=== PATIENT | male | born 1935 | race Caucasian/White ===

== ENCOUNTER 2018-05-31 18:05 | Inpatient (IN) | payer MEDICARE ==
--- NOTE | 2018-05-31 18:16 | ED Physician Chart ---
ED Chief Complaint/HPI - Patient Information Date Seen:: 05/31/18 Time Seen:: 18:00 Chief Complaint:: Depression History of Present Illness:: onset x 2 days of depression and sadness; no report of trauma, H/As, S/T, neck pain, C/P, SOB, Abd. Pain, A/N/V/D/C, fever, chills, SIs, or urinary s/s Historian:: Patient, EMS Review:: Nurse's Note Reviewed, Old Chart Reviewed, EMS run form Reviewed ED Review of Systems - Review of Systems General/Constitutional: No fever, No chills, No weight loss, No weakness, No diaphoresis, No edema, No loss of appetite Skin: No skin lesions, No rash, No bruising Head: No headache, No light-headedness Eyes: No loss of vision, No pain, No diplopia ENT: No earache, No nasal drainage, No sore throat, No tinnitus Neck: No neck pain, No swelling, No thyromegaly, No stiffness, No mass noted Cardio Vascular: No chest pain, No palpitations, No PND, No orthopnea, No edema Pulmonary: No SOB, No cough, No sputum, No wheezing GI: No nausea, No vomiting, No diarrhea, No pain, No melena, No hematochezia, No constipation, No hematemesis G/U: No dysuria, No frequency, No hematuria, No nacturia Musculoskeletal: No bone or joint pain, No back pain, No muscle pain Endocrine: No polyuria, No polydipsia Psychiatric: Prior psych history, Depression, Anxiety, No suicidal ideation, No homicidal ideation, No auditory hallucination, No visual hallucination Hematopoietic: No bruising, No lymphadenopathy Allergic/Immuno: No urticaria, No angioedema Neurological: No syncope, No focal symptoms, No weakness, No paresthesia, No headache, No seizure, No dizziness, No confusion, No vertigo ED Past Medical History - Past Medical History Obtainable: Yes Past Medical History: HTN, DM, Asthma/COPD, Dyslipidemia Family History: Diabetes Melitus, HTN Social History: Non Smoker, No Alcohol, No Drug Use, Care Facility Surgical History: None Psychiatricy History: Depression Medication: Reviewed Family Medical History - Family Member Mother History Unknown: Yes ED Physical Exam - Physical Examination General/Constitutional: Awake, Well-developed, well-nourished, Alert, No distress, GCS 15, Non-toxic appearing, Ambulatory Head: Atraumatic Eyes: Lids, conjuctiva normal, PERRL, EOMI Skin: Nl inspection, No rash, No skin lesions, No ecchymosis, Well hydrated, No lymphadenopathy ENMT: External ears, nose nl, TM canals nl, Nasal exam nl, Lips, teeth, gums nl , Oropharynx nl, Tonsils nl Neck: Nontender, Full ROM w/o pain, No JVD, No nuchal rigidity, No bruit, No mass, No stridor Respiratory: Nl effort/Exclusion, Clear to Auscultation, No Wheeze/Rhonchi/Rales Cardio Vascular: RRR, No murmur, gallop, rubs, NL S1 S2, Carotid/Femoral/Distal pulses equal bilaterally GI: No tenderness/rebounding/guarding, No organomegaly, No hernia, Normal BS's, Nondistended, No mass/bruits, No McBurney tenderness, Rectum exam nl Other GI comments:: no pulsatile masses : No CVA tenderness Extremities: No tenderness or effusion, Full ROM, normal strength in all extremities, No edema, Normal digits & nails Neuro/Psych: Alert/oriented, DTR's symmetric, Normal sensory exam, Normal motor strength, Judgement/insight normal, Mood normal, Normal gait, No focal deficits Other Neuro/Psych comments:: + Psychomotor Retardation; no SIs; Mood/Affect: Labile Misc: Normal back, No paraspinal tenderness ED Labs/Radiology/EKG Results - Lab Results Comments:: Reviewed - EKG Interpretations EKG Time:: 19:34 Rate & Rhythm: 74; NSR Comments:: non-specific st-t changes ED Septic Shock - . Is Septic Shock (SBP<90, OR Lactate>4 mmol\L) present?: No ED Reassessment (Disposition) - Reassessment Reassessment Condition:: Improved - Diagnosis Diagnosis:: Depression; Medical Clearance; DM; HTN; Hyperlipidemia; Psychosis; Bipolar Disorder - Aftercare/Follow up Instructions Aftercare/Follow-Up Instructions:: Counseled pt regarding lab results/diagnosis & need follow up, Counseled pt & family regarding lab results/diagnosis & need follow up - Patient Disposition Discharge/Transfer:: Acute Care w/in this hosp Admitted to:: [facility] Condition at Disposition:: Stable, Improved
[2018-05-31 18:30] LABS: % BASOPHILS 0.2 % (0.0-2.0); % EOSINOPHILS 2.7 % (0.0-5.0); % LYMPHOCYTES 22.6 % (20.0-50.0); % MONOCYTES 5.6 % (2.0-10.0); % NEUTROPHILS 68.9 % (40.0-80.0); EOSINOPHILE ABSOLUTE 0.3 Th/cmm (0.1-0.4); HEMOGLOBIN 13.5 gm/dL (12-16); LYMPHOCYTE ABSOLUTE 2.7 Th/cmm (1.5-3.0); MEAN CELL VOLUME 88.6 fl (80-99); MEAN CORPUSCULAR HGB CONC 33.8 pg (28.0-36.0); MEAN PLATELET VOLUME 7.8 fl; MONOCYTE ABSOLUTE 0.7 Th/cmm (0.3-1.0); NEUTROPHILE ABSOLUTE 8.1 Th/cmm (1.8-8.0); PLATELET COUNT 287 Th/cmm (150-400); RED BLOOD COUNT 4.52 Mil/cmm (3.80-5.80); RED CELL DISTRIBUTION WIDTH 12.7 % (11.5-20.0); WHITE BLOOD COUNT 11.8 Th/cmm (4.8-10.8)
[2018-05-31 18:47] LABS: ACETAMINOPHEN < 10.0 ug/mL (10.0-30.0); ALB/GLOB RATIO 1.3 (1.0-1.8); ALBUMIN 4.1 gm/dL (4.2-5.5); ALKALINE PHOSPHATASE 95 U/L (34-104); BILIRUBIN,TOTAL 0.7 mg/dL (0.3-1.0); BUN - UREA NITROGEN 24 mg/dL (7-25); CALCIUM SERUM 9.4 mg/dL (8.6-10.3); CHLORIDE 102 mEq/L (98-107); CHOLESTEROL 101 mg/dL (<200); CREATININE - SERUM 1.1 mg/dL (0.7-1.3); GLUCOSE 125 mg/dL (70-105); HDL -HIGH DENSITY LIPOPROTEIN 33 mg/dL (23-92); SGOT 25 U/L (13-39); SGPT/ALT 24 U/L (7-52); SODIUM SERUM 136 mEq/L (136-145); TOTAL PROTEIN,SERUM 7.2 gm/dL (6.0-8.3); TRIGLYCERIDES 149 mg/dL (<150)
[2018-05-31 19:33] LABS: SALICYLATES (ASPIRIN) < 25.0 mg/L (30.0-100.0)
[2018-05-31 20:27] VITALS: BP 115/66
[2018-05-31] MEDS ORDERED: Magnesium Hydroxide (MOM) 30 mL UDC PO PRN (20:27)
[2018-05-31] MEDS ORDERED: Albuterol Nebulizer 2.5mg/3mL HHN PRN (20:33)
[2018-05-31] MEDS ORDERED: Ipratropium Neb 0.5 mg/2.5 mL UD HHN PRN (20:33)
[2018-05-31 22:14] LABS: CHOLESTEROL 100 mg/dL (<200); HDL -HIGH DENSITY LIPOPROTEIN 34 mg/dL (23-92); TRIGLYCERIDES 151 mg/dL (<150)
[2018-06-01] MEDS: INSULIN LISPRO 100 UNIT/ML VIAL SUBQ SCH (06:37)
[2018-06-01] MEDS ORDERED: Non-Formulary Item 1 EA (Sertraline Hcl [Zoloft] 100 MG) PO SCH (09:00)
[2018-06-01] MEDS ORDERED: [UNRECOGNIZED DRUG - OTHER] PO SCH (09:00)
[2018-06-01] MEDS ORDERED: Non-Formulary Item 1 EA (Buspirone Hcl [Buspirone Hcl] 10 MG) PO SCH (09:00)
[2018-06-01] MEDS: Aspirin 81mg Chewable Tab PO SCH (09:46)
[2018-06-01] MEDS: Multivitamin w/ Minerals Tab PO SCH (09:47)
--- NOTE | 2018-06-01 15:47 | History & Physical ---
ADMIT DATE: 05/31/2018 CHIEF COMPLAINT: Agitated behavior. HISTORY OF PRESENT ILLNESS: This is an 82-year-old male with history of stroke with generalized weakness, COPD, gait instability, diabetes, admitted from nursing facility secondary to above condition. The patient in a wheelchair. Denies chest pain, shortness of breath. PAST MEDICAL HISTORY: As mentioned in the history of present illness. PAST SURGICAL HISTORY: Gallbladder surgery. ALLERGIES: LISINOPRIL AND LOVASTATIN. MEDICATIONS: The patient is on Tylenol, amlodipine, aspirin, atorvastatin, BuSpar, Plavix, insulin, albuterol, losartan, metformin, multivitamin, and Zoloft. FAMILY HISTORY: Noncontributory. SOCIAL HISTORY: The patient is a correction patient, requiring 24-hour care. The patient is an avid smoker and drinker, abuse marijuana. 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 REVIEW OF SYSTEMS: GENERAL: The patient denies any question of symptoms. HEENT: The patient with some blurred vision. LUNGS: The patient does have COPD. Denies asthma. The patient is a chronic smoker. HEART: The patient with hypertension and diabetes. ABDOMEN: No nausea, vomiting, pain. GENITOURINARY: The patient denies increase of frequency or dysuria. NEUROLOGIC: History of stroke in the past. PHYSICAL EXAMINATION: VITAL SIGNS: Blood pressure 105/57, respirations 18, pulse 81, temperature 97.6. GENERAL: Elderly male in a wheelchair. NECK: Supple. No mass. LUNGS: Equal breath sounds, otherwise clear to auscultation. HEART: Regular rate and rhythm with systolic ejection murmur. ABDOMEN: Soft, globular. EXTREMITIES: Positive excoriations. Decreased motor and sensory in bilateral lower extremity, in a wheelchair. LABORATORY DATA: WBC 11, hemoglobin 13, platelets 287. Sodium 137, potassium 4.0, BUN 24, creatinine 1.1, glucose 125, triglycerides 151, cholesterol 100. ASSESSMENT AND PLAN: Leukocytosis, mild anemia, diabetes, history of stroke, chronic obstructive pulmonary disease, and gait instability. Continue the patient on ADA diet, insulin sliding scale. We will monitor hemoglobin and hematocrit. Continue fall precaution. Continue with ____. We will provide the patient with bronchodilator treatments. Psychiatry to manage the patient for all psych issues. We will continue to monitor the patient closely. [facility]# [id number]
--- NOTE | 2018-06-02 02:53 | Psychiatric Evaluation ---
DATE OF SERVICE: 06/01/2018 HISTORY OF PRESENT ILLNESS: An 82-year-old male, currently in the hospital, history of depression, worsening sadness, despair, very angry, upset. AO to name, place, not situation. He knows the year and the month, not quite sure about the day of the week. States his mood is "pissed off." States he does not know why he is here. The patient noted to have history of dementia. Staff noting some bouts of confusion, history of medical problems, hemiplegia, COPD. The patient states he is sleeping fairly well, eating okay. PAST PSYCHIATRIC HISTORY: Denies, although he tells me, "I don't have much in the mind" and apparently it is documented, he has dementia. He denies any suicide history. SOCIAL HISTORY: Born in [place], states he is . He states he has 4 children, but is estranged from all of them. No drugs, no alcohol, no tobacco according to the patient. MEDICATIONS: Noted. MENTAL STATUS EXAMINATION: Stated age, fair eye contact. Speech within normal limits. AO to name, place, year, month only. Mood "pissed off." Affect angry. Thought processes were somewhat disoriented. No overt SI or HI, unclear psychotic symptoms. Poor insight and judgment. PROVISIONAL DIAGNOSES: Dementia per documentation, major depression, unspecified. MEDICAL: Please see full H and P. Functional impairments unclear, hemiplegia noted. We will need assistance. ESTIMATED LENGTH OF STAY: 7-10 days. ASSESSMENT: The patient is upset, angry, noting that he is "pissed off," worsening confusion, depression, overwhelming sadness, despair. PLAN: We will continue to monitor, titrate and adjust medications. Continue Zoloft at current dosing. Consider Aricept, Namenda, increase collateral. CONDITIONS FOR DISCHARGE: Improved mood, improved affect, better control of any mood symptoms. [facility]# [id number]
[2018-06-02] MEDS: INSULIN LISPRO 100 UNIT/ML VIAL SUBQ SCH (07:30)
[2018-06-02] MEDS: Aspirin 81mg Chewable Tab PO SCH (10:00)
[2018-06-02] MEDS: Multivitamin w/ Minerals Tab PO SCH (10:00)
--- NOTE | 2018-06-02 12:51 | Internal Medicine Prog Note ---
Internal Medicine Subjective - Subjective Patient seen and examined:: with staff, chart reviewed Patient is:: awake, verbal, interactive, in wheelchair, agitated Per staff patient has:: no adverse event, no episodes of fall, poor oral intake , tolerating meds Internal Medicine Objective - Results Result Diagrams: 05/31/18 18:22 05/31/18 18:22 Recent Labs: Laboratory Last Values WBC 11.8 Th/cmm (4.8-10.8) H 05/31/18 18:22 RBC 4.52 Mil/cmm (3.80-5.80) 05/31/18 18:22 Hgb 13.5 gm/dL (12-16) 05/31/18 18:22 Hct 40.0 % (41.0-60) L 05/31/18 18:22 MCV 88.6 fl (80-99) 05/31/18 18:22 MCH 30.0 pg (27.0-31.0) 05/31/18 18: MCHC Differential 33.8 pg (28.0-36.0) 05/31/18 18:22 RDW 12.7 % (11.5-20.0) 05/31/18 18:22 Plt Count 287 Th/cmm (150-400) 05/31/18 18:22 MPV 7.8 fl 05/31/18 18:22 Neutrophils % 68.9 % (40.0-80.0) 05/31/18 18:22 Lymphocytes % 22.6 % (20.0-50.0) 05/31/18 18:22 Monocytes % 5.6 % (2.0-10.0) 05/31/18 18:22 Eosinophils % 2.7 % (0.0-5.0) 05/31/18 18:22 Basophils % 0.2 % (0.0-2.0) 05/31/18 18:22 Sodium 136 mEq/L (136-145) 05/31/18 18:22 Potassium 4.0 mEq/L (3.5-5.1) 05/31/18 18:22 Chloride 102 mEq/L (98-107) 05/31/18 18:22 Carbon Dioxide 22.0 mEq/L (21.0-31.0) 05/31/18 18:22 Anion Gap 16.0 (7.0-16.0) 05/31/18 18:22 BUN 24 mg/dL (7-25) 05/31/18 18:22 Creatinine 1.1 mg/dL (0.7-1.3) 05/31/18 18:22 Est GFR ( Amer) TNP 05/31/18 18:22 Est GFR (Non-Af Amer) TNP 05/31/18 18:22 BUN/Creatinine Ratio 21.8 05/31/18 18:22 Glucose 125 mg/dL (70-105) H 05/31/18 18:22 Calcium 9.4 mg/dL (8.6-10.3) 05/31/18 18:22 Total Bilirubin 0.7 mg/dL (0.3-1.0) 05/31/18 18:22 AST 25 U/L (13-39) 05/31/18 18:22 ALT 24 U/L (7-52) 05/31/18 18:22 Alkaline Phosphatase 95 U/L (34-104) 05/31/18 18:22 Troponin I < 0.01 ng/mL (0.01-0.05) L 05/31/18 18:22 Total Protein 7.2 gm/dL (6.0-8.3) 05/31/18 18:22 Albumin 4.1 gm/dL (4.2-5.5) L 05/31/18 18:22 Globulin 3.1 gm/dL 05/31/18 18:22 Albumin/Globulin Ratio 1.3 (1.0-1.8) 05/31/18 18:22 Triglycerides 151 mg/dL (<150) H 05/31/18 20:00 Cholesterol 100 mg/dL (<200) 05/31/18 20:00 LDL Cholesterol Direct 55 mg/dL (75-193) L 05/31/18 20:00 HDL Cholesterol 34 mg/dL (23-92) 05/31/18 20:00 TSH 4.37 uIU/ml (0.34-5.60) 05/31/18 18:22 Salicylates < 25.0 mg/L (30.0-100.0) L 05/31/18 18:22 Acetaminophen < 10.0 ug/mL (10.0-30.0) L 05/31/18 18:22 Ethyl Alcohol < 10 mg/dL (0-10) 05/31/18 18:22 RPR NONREACTIVE (NONREACTIVE) 05/31/18 18:22 - Physical Exam Vitals and I&O: Vital Signs Temp 97.2 F 06/02/18 06:00 Pulse 97 06/02/18 10:15 Resp 20 06/02/18 06:00 BP 155/73 06/02/18 10:15 Pulse Ox 97 06/02/18 06:00 Intake & Output 06/01/18 06/02/18 06/02/18 18:59 06:59 18:59 Intake Total 800 120 Balance 800 120 Intake: Oral 800 120 Other: # Voids 4 3 # Bowel Movements 0 Active Medications: Current Medications Acetaminophen (Tylenol) 650 mg PO Q4HR PRN PRN Reason: Mild Pain / Temp above 100 Stop: 07/30/18 20:26 Albuterol Sulfate (Albuterol 2.5mg/3ml Neb Ud) 2.5 mg HHN Q4HRT PRN PRN Reason: Shortness of Breath Stop: 07/30/18 20:32 Amlodipine Besylate (Norvasc) 5 mg PO DAILY [facility] Stop: 07/31/18 08:59 Last Admin: 06/02/18 10:15 Dose: 5 mg Aspirin (Aspirin Chewable) 81 mg PO DAILY [facility] Stop: 07/31/18 08:59 Last Admin: 06/02/18 10:00 Dose: 81 mg Atorvastatin Calcium (Lipitor) 80 mg PO HS [facility]; Protocol Stop: 07/30/18 20:59 Last Admin: 06/01/18 20:57 Dose: 80 mg Buspirone HCl (Buspar) 10 mg PO BID [facility] Stop: 07/31/18 08:59 Last Admin: 06/02/18 10:00 Dose: 10 mg Clopidogrel Bisulfate (Plavix) 75 mg PO DAILY [facility] Stop: 07/31/18 08:59 Last Admin: 06/02/18 10:00 Dose: 75 mg Ipratropium [place] (Atrovent Neb 0.5mg/2.5ml) 0.5 mg HHN Q4HRT PRN PRN Reason: Shortness of Breath Stop: 07/30/18 20:32 Lorazepam (Ativan) 0.5 mg PO Q4HR PRN; Protocol PRN Reason: Anxiety Stop: 06/30/18 20:26 Losartan Potassium (Cozaar) 25 mg PO DAILY [facility] Stop: 07/31/18 08:59 Last Admin: 06/02/18 10:00 Dose: 25 mg Magnesium Hydroxide (Milk Of Magnesia) 30 ml PO HS PRN PRN Reason: Constipation Metformin HCl (Glucophage) 850 mg PO BIDWM [facility] Stop: 07/31/18 07:59 Last Admin: 06/02/18 09:00 Dose: 850 mg Sertraline HCl (Zoloft) 100 mg PO DAILY [facility] Stop: 07/31/18 08:59 Last Admin: 06/02/18 10:00 Dose: 100 mg Zolpidem Tartrate (Ambien) 5 mg PO HS PRN PRN Reason: Insomnia Stop: 07/30/18 20:26 General: weak, demented HEENT: NC/AT, PERRLA, EOMI Neck: Supple, No JVD Lungs: CTAB Cardiovascular: RRR, Normal S1, Normal S2, with murmur Abdomen: soft, non-tender, globular, positive bowel sound Extremities: excoriation, contracture Neurological: no change, disorganized Internal Medicine Assmt/Plan - Assessment Assessment: ASSESSMENT AND PLAN: Leukocytosis, mild anemia, diabetes, history of stroke, chronic obstructive pulmonary disease, and gait instability. Continue the patient on ADA diet, insulin sliding scale. - Plan Plan: PLAN: Continue the patient on ADA diet, insulin sliding scale. We will monitor hemoglobin and hematocrit. Continue fall precaution. Continue on w/c We will provide the patient with bronchodilator treatments. Psychiatry to manage the patient for all psych issues. We will continue to monitor the patient closely.
--- NOTE | 2018-06-03 01:08 | Progress Notes ---
DATE: 06/02/[address] Vo. Case was discussed with staff of the patient, reviewed records. This is an 82-year-old male who was admitted on 05/31/2018 because of depression, despair, angry, upset, oriented only to name and place, but not to situation. The patient was angry, irritable. He is not sure why he is here with a history of dementia. He is with bouts of confusion with hemiplegia, COPD. He sleeps well. He eats well. The patient continues to be confused about why he is here. Continues to be unable to state a safe plan for self-care. Continues to have episodes of agitation and irritability. He is on BuSpar 10 mg twice a day as well as Zoloft 100 mg daily with no side effects, no sedation, no nausea and we will continue outpatient group therapy, milieu therapy and adjust medications as needed. [facility]# [id number]
[2018-06-03] MEDS: INSULIN LISPRO 100 UNIT/ML VIAL SUBQ SCH (06:32)
[2018-06-03] MEDS: Multivitamin w/ Minerals Tab PO SCH (09:07)
[2018-06-03] MEDS: Aspirin 81mg Chewable Tab PO SCH (09:07)
--- NOTE | 2018-06-03 11:08 | Internal Medicine Prog Note ---
Internal Medicine Subjective - Subjective Service Date: 06/03/18 Patient is:: awake, verbal, interactive, in wheelchair, agitated Per staff patient has:: no adverse event, no episodes of fall, poor oral intake , tolerating meds Internal Medicine Objective - Results Result Diagrams: 05/31/18 18:22 05/31/18 18:22 Recent Labs: Laboratory Last Values WBC 11.8 Th/cmm (4.8-10.8) H 05/31/18 18:22 RBC 4.52 Mil/cmm (3.80-5.80) 05/31/18 18:22 Hgb 13.5 gm/dL (12-16) 05/31/18 18:22 Hct 40.0 % (41.0-60) L 05/31/18 18:22 MCV 88.6 fl (80-99) 05/31/18 18:22 MCH 30.0 pg (27.0-31.0) 05/31/18 18: MCHC Differential 33.8 pg (28.0-36.0) 05/31/18 18:22 RDW 12.7 % (11.5-20.0) 05/31/18 18:22 Plt Count 287 Th/cmm (150-400) 05/31/18 18:22 MPV 7.8 fl 05/31/18 18:22 Neutrophils % 68.9 % (40.0-80.0) 05/31/18 18:22 Lymphocytes % 22.6 % (20.0-50.0) 05/31/18 18:22 Monocytes % 5.6 % (2.0-10.0) 05/31/18 18:22 Eosinophils % 2.7 % (0.0-5.0) 05/31/18 18:22 Basophils % 0.2 % (0.0-2.0) 05/31/18 18:22 Sodium 136 mEq/L (136-145) 05/31/18 18:22 Potassium 4.0 mEq/L (3.5-5.1) 05/31/18 18:22 Chloride 102 mEq/L (98-107) 05/31/18 18:22 Carbon Dioxide 22.0 mEq/L (21.0-31.0) 05/31/18 18:22 Anion Gap 16.0 (7.0-16.0) 05/31/18 18:22 BUN 24 mg/dL (7-25) 05/31/18 18:22 Creatinine 1.1 mg/dL (0.7-1.3) 05/31/18 18:22 Est GFR ( Amer) TNP 05/31/18 18:22 Est GFR (Non-Af Amer) TNP 05/31/18 18:22 BUN/Creatinine Ratio 21.8 05/31/18 18:22 Glucose 125 mg/dL (70-105) H 05/31/18 18:22 Calcium 9.4 mg/dL (8.6-10.3) 05/31/18 18:22 Total Bilirubin 0.7 mg/dL (0.3-1.0) 05/31/18 18:22 AST 25 U/L (13-39) 05/31/18 18:22 ALT 24 U/L (7-52) 05/31/18 18:22 Alkaline Phosphatase 95 U/L (34-104) 05/31/18 18:22 Troponin I < 0.01 ng/mL (0.01-0.05) L 05/31/18 18:22 Total Protein 7.2 gm/dL (6.0-8.3) 05/31/18 18:22 Albumin 4.1 gm/dL (4.2-5.5) L 05/31/18 18:22 Globulin 3.1 gm/dL 05/31/18 18:22 Albumin/Globulin Ratio 1.3 (1.0-1.8) 05/31/18 18:22 Triglycerides 151 mg/dL (<150) H 05/31/18 20:00 Cholesterol 100 mg/dL (<200) 05/31/18 20:00 LDL Cholesterol Direct 55 mg/dL (75-193) L 05/31/18 20:00 HDL Cholesterol 34 mg/dL (23-92) 05/31/18 20:00 TSH 4.37 uIU/ml (0.34-5.60) 05/31/18 18:22 Salicylates < 25.0 mg/L (30.0-100.0) L 05/31/18 18:22 Acetaminophen < 10.0 ug/mL (10.0-30.0) L 01/30/19 18:22 Ethyl Alcohol < 10 mg/dL (0-10) 05/31/18 18:22 RPR NONREACTIVE (NONREACTIVE) 05/31/18 18:22 - Physical Exam Vitals and I&O: Vital Signs Temp 97.0 F 06/03/18 06:04 Pulse 77 06/03/18 09:09 Resp 18 06/03/18 07:33 BP 145/63 06/03/18 09:09 Pulse Ox 95 06/03/18 07:33 Intake & Output 06/02/18 06/03/18 06/03/18 18:59 06:59 18:59 Intake Total 1300 120 Balance 1300 120 Intake: Oral 1300 120 Other: # Voids 3 2 # Bowel Movements 1 0 Active Medications: Current Medications Acetaminophen (Tylenol) 650 mg PO Q4HR PRN PRN Reason: Mild Pain / Temp above 100 Stop: 07/30/18 20:26 Albuterol Sulfate (Albuterol 2.5mg/3ml Neb Ud) 2.5 mg HHN Q4HRT PRN PRN Reason: Shortness of Breath Stop: 07/30/18 20:32 Amlodipine Besylate (Norvasc) 5 mg PO DAILY [facility] Stop: 07/31/18 08:59 Last Admin: 06/03/18 09:07 Dose: 5 mg Aspirin (Aspirin Chewable) 81 mg PO DAILY [facility] Stop: 07/31/18 08:59 Last Admin: 06/03/18 09:07 Dose: 81 mg Atorvastatin Calcium (Lipitor) 80 mg PO HS [facility]; Protocol Stop: 07/30/18 20:59 Last Admin: 06/02/18 20:57 Dose: 80 mg Buspirone HCl (Buspar) 10 mg PO BID [facility] Stop: 07/31/18 08:59 Last Admin: 06/03/18 09:07 Dose: 10 mg Clopidogrel Bisulfate (Plavix) 75 mg PO DAILY [facility] Stop: 07/31/18 08:59 Last Admin: 06/03/18 09:07 Dose: 75 mg Ipratropium [place] (Atrovent Neb 0.5mg/2.5ml) 0.5 mg HHN Q4HRT PRN PRN Reason: Shortness of Breath Stop: 07/30/18 20:32 Lorazepam (Ativan) 0.5 mg PO Q4HR PRN; Protocol PRN Reason: Anxiety Stop: 06/30/18 20:26 Losartan Potassium (Cozaar) 25 mg PO DAILY [facility] Stop: 07/31/18 08:59 Last Admin: 06/03/18 09:09 Dose: 25 mg Magnesium Hydroxide (Milk Of Magnesia) 30 ml PO HS PRN PRN Reason: Constipation Metformin HCl (Glucophage) 850 mg PO BIDWM [facility] Stop: 07/31/18 07:59 Last Admin: 06/03/18 09:06 Dose: 850 mg Sertraline HCl (Zoloft) 100 mg PO DAILY [facility] Stop: 07/31/18 08:59 Last Admin: 06/03/18 09:06 Dose: 100 mg Zolpidem Tartrate (Ambien) 5 mg PO HS PRN PRN Reason: Insomnia Stop: 07/30/18 20:26 General: weak, demented HEENT: NC/AT, PERRLA, EOMI Neck: Supple, No JVD Lungs: CTAB Cardiovascular: RRR, Normal S1, Normal S2, with murmur Abdomen: soft, non-tender, globular, positive bowel sound Extremities: excoriation, contracture Neurological: no change, disorganized Internal Medicine Assmt/Plan - Assessment Assessment: Leukocytosis, mild anemia, diabetes, history of stroke, chronic obstructive pulmonary disease, and gait instability. - Plan Plan: Continue thepatient on ADA diet, insulin sliding scale . Psychiatry to manage the patient for all psych issues. We will continue to monitor the patient closely. Nutritional Asmnt/Malnutr-PDOC - Dietary Evaluation Malnutrition Findings (Please click <Entered> for more info): Nutritional Asmnt/Malnutrition Start: 06/03/18 09: 32 Text: Status: Active Freq: Protocol: Document 06/03/18 09:36 GHASSAN (Rec: 06/03/18 10:32 [email or web address]- [email or web address]) Nutritional Asmnt/Malnutrition Patient General Information Nutritional Screening Moderate Risk Diagnosis Psychosis Pertinent Medical Hx/Surgical Hx Stroke with generalized weakness, COPD, gait instability, diabetes Subjective Information Patient was admitted from nursing facility. Current Diet Order/ Nutrition Support 60 gm CCHO, low sodium Patient / S.O Not Indicated Pertinent Medications Lipitor, Cozaar, MOM, Metformin Pertinent Labs WNL Nutritional Hx/Data Height 5 ft 7 in Height (Calculated Centimeters) 170.2 Current Weight (lbs) 150 lb Weight (Calculated Kilograms) 68.0 Weight (Calculated Grams) 43099.9 [place] Body Weight 148 % [place] Body Weight 101 Body Mass Index (BMI) 23.5 Recent Weight Change No Weight Status Approriate GI Symptoms GI Symptoms None Last BM 2 x 1 Difficult in: None Food Allergies No Cultural/Ethnic/Sikh Belief None indicated Skin Integrity/Comment: Dario 16, Intact Current %PO Good (75-100%) Estimated Nutritional Goals BEE in Kcals: Using Current wt Calories/Kcals/Kg 25-30 kcal/kg using 68.1kg Kcals Calculated 3034-4142 kcal/day Protein: Using Current wt Protein g/kgm/kg Protein Calculated ~70gm/day Fluid: ml 5929-2956 ml/day Nutritional Problem 1. Problem Problem No nutrition diagnosis at this time Intervention/Recommendation Comments 1. Continue 60 gm CCHO, low sodium diet as tolerated by patient. Expected Outcomes/Goals Expected Outcomes/Goals Oral intake >75% of meals, weight stable, skin intact F/U LR 06/10
--- NOTE | 2018-06-04 02:13 | Progress Notes ---
DATE: 06/03/2018 SUBJECTIVE: Chart reviewed and the patient interviewed. Also discussed the patient's condition with the staff and reviewed records and labs. The patient is still in a depressed mood. The patient also is still confused, forgetful, and needs lots of redirections. On the other hand, the patient seems to be calmer than before and easier to redirect him. Also is interacting more. Staff reported that the primary care physician of the patient in his primary facility wanted the patient to have an MRI and Dr. Fox was notified, but still did not respond to do so. It is not clear to me the reasons for primary care wanted to have an MRI done. ASSESSMENT: The patient is still confused and depressed. TREATMENT PLAN: Continue BuSpar and Zoloft. Continue to monitor his behavior and condition closely and continue to follow up. JOB# [id number]
[2018-06-04] MEDS: INSULIN LISPRO 100 UNIT/ML VIAL SUBQ SCH (06:52)
[2018-06-04] MEDS: Aspirin 81mg Chewable Tab PO SCH (08:58)
[2018-06-04] MEDS: Multivitamin w/ Minerals Tab PO SCH (08:58)
--- NOTE | 2018-06-04 12:38 | Internal Medicine Prog Note ---
Internal Medicine Subjective - Subjective Service Date: 06/04/18 Patient is:: awake, verbal, interactive, in wheelchair, agitated Per staff patient has:: no adverse event, no episodes of fall, poor oral intake , tolerating meds Internal Medicine Objective - Results Result Diagrams: 05/31/18 18:22 05/31/18 18:22 Recent Labs: Laboratory Last Values WBC 11.8 Th/cmm (4.8-10.8) H 05/31/18 18:22 RBC 4.52 Mil/cmm (3.80-5.80) 05/31/18 18:22 Hgb 13.5 gm/dL (12-16) 05/31/18 18:22 Hct 40.0 % (41.0-60) L 05/31/18 18:22 MCV 88.6 fl (80-99) 05/31/18 18:22 MCH 30.0 pg (27.0-31.0) 05/31/18 18: MCHC Differential 33.8 pg (28.0-36.0) 05/31/18 18:22 RDW 12.7 % (11.5-20.0) 05/31/18 18:22 Plt Count 287 Th/cmm (150-400) 05/31/18 18:22 MPV 7.8 fl 05/31/18 18:22 Neutrophils % 68.9 % (40.0-80.0) 05/31/18 18:22 Lymphocytes % 22.6 % (20.0-50.0) 05/31/18 18:22 Monocytes % 5.6 % (2.0-10.0) 05/31/18 18:22 Eosinophils % 2.7 % (0.0-5.0) 05/31/18 18:22 Basophils % 0.2 % (0.0-2.0) 05/31/18 18:22 Sodium 136 mEq/L (136-145) 05/31/18 18:22 Potassium 4.0 mEq/L (3.5-5.1) 05/31/18 18:22 Chloride 102 mEq/L (98-107) 05/31/18 18:22 Carbon Dioxide 22.0 mEq/L (21.0-31.0) 05/31/18 18:22 Anion Gap 16.0 (7.0-16.0) 05/31/18 18:22 BUN 24 mg/dL (7-25) 05/31/18 18:22 Creatinine 1.1 mg/dL (0.7-1.3) 05/31/18 18:22 Est GFR ( Amer) TNP 05/31/18 18:22 Est GFR (Non-Af Amer) TNP 05/31/18 18:22 BUN/Creatinine Ratio 21.8 05/31/18 18:22 Glucose 125 mg/dL (70-105) H 05/31/18 18:22 Calcium 9.4 mg/dL (8.6-10.3) 05/31/18 18:22 Total Bilirubin 0.7 mg/dL (0.3-1.0) 05/31/18 18:22 AST 25 U/L (13-39) 05/31/18 18:22 ALT 24 U/L (7-52) 05/31/18 18:22 Alkaline Phosphatase 95 U/L (34-104) 05/31/18 18:22 Troponin I < 0.01 ng/mL (0.01-0.05) L 05/31/18 18:22 Total Protein 7.2 gm/dL (6.0-8.3) 05/31/18 18:22 Albumin 4.1 gm/dL (4.2-5.5) L 05/31/18 18:22 Globulin 3.1 gm/dL 05/31/18 18:22 Albumin/Globulin Ratio 1.3 (1.0-1.8) 05/31/18 18:22 Triglycerides 151 mg/dL (<150) H 05/31/18 20:00 Cholesterol 100 mg/dL (<200) 05/31/18 20:00 LDL Cholesterol Direct 55 mg/dL (75-193) L 05/31/18 20:00 HDL Cholesterol 34 mg/dL (23-92) 05/31/18 20:00 TSH 4.37 uIU/ml (0.34-5.60) 05/31/18 18:22 Salicylates < 25.0 mg/L (30.0-100.0) L 05/31/18 18:22 Acetaminophen < 10.0 ug/mL (10.0-30.0) L 01/30/19 18:22 Ethyl Alcohol < 10 mg/dL (0-10) 05/31/18 18:22 RPR NONREACTIVE (NONREACTIVE) 05/31/18 18:22 - Physical Exam Vitals and I&O: Vital Signs Temp 98.1 F 06/04/18 05:55 Pulse 85 06/04/18 09:24 Resp 12 06/04/18 07:00 BP 139/70 06/04/18 09:24 Pulse Ox 94 06/04/18 07:00 Intake & Output 06/03/18 06/04/18 06/04/18 18:59 06:59 18:59 Intake Total 850 120 Output Total 3 Balance 850 117 Intake: Oral 850 120 Output: Urine 3 Stool 0 Other: # Voids 4 3 # Bowel Movements 1 0 Active Medications: Current Medications Acetaminophen (Tylenol) 650 mg PO Q4HR PRN PRN Reason: Mild Pain / Temp above 100 Stop: 07/30/18 20:26 Albuterol Sulfate (Albuterol 2.5mg/3ml Neb Ud) 2.5 mg HHN Q4HRT PRN PRN Reason: Shortness of Breath Stop: 07/30/18 20:32 Amlodipine Besylate (Norvasc) 5 mg PO DAILY [facility] Stop: 07/31/18 08:59 Last Admin: 06/04/18 09:24 Dose: 5 mg Aspirin (Aspirin Chewable) 81 mg PO DAILY [facility] Stop: 07/31/18 08:59 Last Admin: 06/04/18 08:58 Dose: 81 mg Atorvastatin Calcium (Lipitor) 80 mg PO [facility]; Protocol Stop: 07/30/18 20:59 Last Admin: 06/03/18 21:59 Dose: 80 mg Buspirone HCl (Buspar) 10 mg PO BID [facility] Stop: 07/31/18 08:59 Last Admin: 06/04/18 08:58 Dose: 10 mg Clopidogrel Bisulfate (Plavix) 75 mg PO DAILY [facility] Stop: 07/31/18 08:59 Last Admin: 06/04/18 08:58 Dose: 75 mg Ipratropium [place] (Atrovent Neb 0.5mg/2.5ml) 0.5 mg HHN Q4HRT PRN PRN Reason: Shortness of Breath Stop: 07/30/18 20:32 Lorazepam (Ativan) 0.5 mg PO Q4HR PRN; Protocol PRN Reason: Anxiety Stop: 06/30/18 20:26 Losartan Potassium (Cozaar) 25 mg PO DAILY [facility] Stop: 07/31/18 08:59 Last Admin: 06/04/18 09:21 Dose: 25 mg Magnesium Hydroxide (Milk Of Magnesia) 30 ml PO HS PRN PRN Reason: Constipation Metformin HCl (Glucophage) 850 mg PO BIDWM [facility] Stop: 07/31/18 07:59 Last Admin: 06/04/18 08:58 Dose: 850 mg Sertraline HCl (Zoloft) 100 mg PO DAILY [facility] Stop: 07/31/18 08:59 Last Admin: 06/04/18 08:58 Dose: 100 mg Zolpidem Tartrate (Ambien) 5 mg PO HS PRN PRN Reason: Insomnia Stop: 07/30/18 20:26 General: weak, demented HEENT: NC/AT, PERRLA, EOMI Neck: Supple, No JVD Lungs: CTAB Cardiovascular: RRR, Normal S1, Normal S2, with murmur Abdomen: soft, non-tender, globular, positive bowel sound Extremities: excoriation, contracture Neurological: no change, disorganized Internal Medicine Assmt/Plan - Assessment Assessment: Leukocytosis, mild anemia, diabetes, history of stroke, chronic obstructive pulmonary disease, and gait instability. - Plan Plan: Continue thepatient on ADA diet, insulin sliding scale . Psychiatry to manage the patient for all psych issues. We will continue to monitor the patient closely. Nutritional Asmnt/Malnutr-PDOC - Dietary Evaluation Malnutrition Findings (Please click <Entered> for more info): Nutritional Asmnt/Malnutrition Start: 06/03/18 09: 32 Text: Status: Complete Freq: Protocol: Document 06/03/18 09:36 MMULN (Rec: 06/03/18 10:32 MMULMANE MOON- [email or web address]) Nutritional Asmnt/Malnutrition Patient General Information Nutritional Screening Moderate Risk Diagnosis Psychosis Pertinent Medical Hx/Surgical Hx Stroke with generalized weakness, COPD, gait instability, diabetes Subjective Information Patient was admitted from nursing facility. Tolerating current diet order without difficulty. Current Diet Order/ Nutrition Support 60 gm CCHO, low sodium Patient / S.O Not Indicated Pertinent Medications Lipitor, Cozaar, MOM, Metformin Pertinent Labs WNL Nutritional Hx/Data Height 5 ft 7 in Height (Calculated Centimeters) 170.2 Current Weight (lbs) 150 lb Weight (Calculated Kilograms) 68.0 Weight (Calculated Grams) 85922.9 [place] Body Weight 148 % [place] Body Weight 101 Body Mass Index (BMI) 23.5 Recent Weight Change No Weight Status Approriate GI Symptoms GI Symptoms None Last BM 2 x 1 Difficult in: None Food Allergies No Cultural/Ethnic/[employer]ist Belief None indicated Skin Integrity/Comment: Dario 16, Intact Current %PO Good (75-100%) Estimated Nutritional Goals BEE in Kcals: Using Current wt Calories/Kcals/Kg 25-30 kcal/kg using 68.1kg Kcals Calculated 5322-0346 kcal/day Protein: Using Current wt Protein g/kgm/kg Protein Calculated ~70gm/day Fluid: ml 2826-3924 ml/day Nutritional Problem 1. Problem Problem No nutrition diagnosis at this time Intervention/Recommendation Comments 1. Continue 60 gm CCHO, low sodium diet as tolerated by patient. Expected Outcomes/Goals Expected Outcomes/Goals Oral intake >75% of meals, weight stable, skin intact F/U LR 06/10
--- NOTE | 2018-06-05 00:12 | Progress Notes ---
DATE: SUBJECTIVE: Chart reviewed and the patient interviewed. Also discussed the patient's condition with the staff and reviewed records and labs. The patient is still in a depressed mood. The patient also is calm and cooperative. The patient also is interacting slightly more, but he is still confused and forgetful and needs redirections. ASSESSMENT: The patient still needs monitoring. TREATMENT PLAN: Continue to monitor behavior and condition closely. Also, continue adjusting psychotropic medications and followup. [facility]# [id number]
[2018-06-05] MEDS: INSULIN LISPRO 100 UNIT/ML VIAL SUBQ SCH (07:00)
[2018-06-05] MEDS: Multivitamin w/ Minerals Tab PO SCH (08:54)
[2018-06-05] MEDS: Aspirin 81mg Chewable Tab PO SCH (08:54)
--- NOTE | 2018-06-05 12:14 | Internal Medicine Prog Note ---
Internal Medicine Subjective - Subjective Patient seen and examined:: with staff, chart reviewed Patient is:: awake, verbal, interactive, in wheelchair, agitated Per staff patient has:: no adverse event, no episodes of fall, poor oral intake , tolerating meds Internal Medicine Objective - Results Result Diagrams: 05/31/18 18:22 05/31/18 18:22 Recent Labs: Laboratory Last Values WBC 11.8 Th/cmm (4.8-10.8) H 05/31/18 18:22 RBC 4.52 Mil/cmm (3.80-5.80) 05/31/18 18:22 Hgb 13.5 gm/dL (12-16) 05/31/18 18:22 Hct 40.0 % (41.0-60) L 05/31/18 18:22 MCV 88.6 fl (80-99) 05/31/18 18:22 MCH 30.0 pg (27.0-31.0) 05/31/18 18: MCHC Differential 33.8 pg (28.0-36.0) 05/31/18 18:22 RDW 12.7 % (11.5-20.0) 05/31/18 18:22 Plt Count 287 Th/cmm (150-400) 05/31/18 18:22 MPV 7.8 fl 05/31/18 18:22 Neutrophils % 68.9 % (40.0-80.0) 05/31/18 18:22 Lymphocytes % 22.6 % (20.0-50.0) 05/31/18 18:22 Monocytes % 5.6 % (2.0-10.0) 05/31/18 18:22 Eosinophils % 2.7 % (0.0-5.0) 05/31/18 18:22 Basophils % 0.2 % (0.0-2.0) 05/31/18 18:22 Sodium 136 mEq/L (136-145) 05/31/18 18:22 Potassium 4.0 mEq/L (3.5-5.1) 05/31/18 18:22 Chloride 102 mEq/L (98-107) 05/31/18 18:22 Carbon Dioxide 22.0 mEq/L (21.0-31.0) 05/31/18 18:22 Anion Gap 16.0 (7.0-16.0) 05/31/18 18:22 BUN 24 mg/dL (7-25) 05/31/18 18:22 Creatinine 1.1 mg/dL (0.7-1.3) 05/31/18 18:22 Est GFR ( Amer) TNP 05/31/18 18:22 Est GFR (Non-Af Amer) TNP 05/31/18 18:22 BUN/Creatinine Ratio 21.8 05/31/18 18:22 Glucose 125 mg/dL (70-105) H 05/31/18 18:22 Calcium 9.4 mg/dL (8.6-10.3) 05/31/18 18:22 Total Bilirubin 0.7 mg/dL (0.3-1.0) 05/31/18 18:22 AST 25 U/L (13-39) 05/31/18 18:22 ALT 24 U/L (7-52) 05/31/18 18:22 Alkaline Phosphatase 95 U/L (34-104) 05/31/18 18:22 Troponin I < 0.01 ng/mL (0.01-0.05) L 05/31/18 18:22 Total Protein 7.2 gm/dL (6.0-8.3) 05/31/18 18:22 Albumin 4.1 gm/dL (4.2-5.5) L 05/31/18 18:22 Globulin 3.1 gm/dL 05/31/18 18:22 Albumin/Globulin Ratio 1.3 (1.0-1.8) 05/31/18 18:22 Triglycerides 151 mg/dL (<150) H 05/31/18 20:00 Cholesterol 100 mg/dL (<200) 05/31/18 20:00 LDL Cholesterol Direct 55 mg/dL (75-193) L 05/31/18 20:00 HDL Cholesterol 34 mg/dL (23-92) 05/31/18 20:00 TSH 4.37 uIU/ml (0.34-5.60) 05/31/18 18:22 Salicylates < 25.0 mg/L (30.0-100.0) L 05/31/18 18:22 Acetaminophen < 10.0 ug/mL (10.0-30.0) L 05/31/18 18:22 Ethyl Alcohol < 10 mg/dL (0-10) 05/31/18 18:22 RPR NONREACTIVE (NONREACTIVE) 05/31/18 18:22 - Physical Exam Vitals and I&O: Vital Signs Temp 97.8 F 06/05/18 05:58 Pulse 77 06/05/18 07:15 Resp 12 06/05/18 07:15 BP 114/52 06/05/18 05:58 Pulse Ox 96 06/05/18 07:15 Intake & Output 06/04/18 06/05/18 06/05/18 18:59 06:59 18:59 Intake Total 120 Balance 120 Intake: Oral 120 Other: # Voids 3 # Bowel Movements 2 0 Active Medications: Current Medications Acetaminophen (Tylenol) 650 mg PO Q4HR PRN PRN Reason: Mild Pain / Temp above 100 Stop: 07/30/18 20:26 Albuterol Sulfate (Albuterol 2.5mg/3ml Neb Ud) 2.5 mg HHN Q4HRT PRN PRN Reason: Shortness of Breath Stop: 07/30/18 20:32 Amlodipine Besylate (Norvasc) 5 mg PO DAILY [facility] Stop: 07/31/18 08:59 Last Admin: 06/05/18 08:54 Dose: Not Given Aspirin (Aspirin Chewable) 81 mg PO DAILY [facility] Stop: 07/31/18 08:59 Last Admin: 06/05/18 08:54 Dose: 81 mg Atorvastatin Calcium (Lipitor) 80 mg PO HS [facility]; Protocol Stop: 07/30/18 20:59 Last Admin: 06/04/18 20:54 Dose: 80 mg Buspirone HCl (Buspar) 10 mg PO BID [facility] Stop: 07/31/18 08:59 Last Admin: 06/05/18 08:54 Dose: 10 mg Clopidogrel Bisulfate (Plavix) 75 mg PO DAILY [facility] Stop: 07/31/18 08:59 Last Admin: 06/05/18 08:54 Dose: 75 mg Ipratropium [place] (Atrovent Neb 0.5mg/2.5ml) 0.5 mg HHN Q4HRT PRN PRN Reason: Shortness of Breath Stop: 07/30/18 20:32 Lorazepam (Ativan) 0.5 mg PO Q4HR PRN; Protocol PRN Reason: Anxiety Stop: 06/30/18 20:26 Losartan Potassium (Cozaar) 25 mg PO DAILY [facility] Stop: 07/31/18 08:59 Last Admin: 06/05/18 08:54 Dose: Not Given Magnesium Hydroxide (Milk Of Magnesia) 30 ml PO HS PRN PRN Reason: Constipation Metformin HCl (Glucophage) 850 mg PO BIDWM [facility] Stop: 07/31/18 07:59 Last Admin: 06/05/18 08:54 Dose: 850 mg Sertraline HCl (Zoloft) 100 mg PO DAILY [facility] Stop: 07/31/18 08:59 Last Admin: 06/05/18 08:54 Dose: 100 mg Zolpidem Tartrate (Ambien) 5 mg PO HS PRN PRN Reason: Insomnia Stop: 07/30/18 20:26 Last Admin: 06/04/18 20:56 Dose: 5 mg General: weak, demented HEENT: NC/AT, PERRLA, EOMI Neck: Supple, No JVD Lungs: CTAB Cardiovascular: RRR, Normal S1, Normal S2, with murmur Abdomen: soft, non-tender, globular, positive bowel sound Extremities: excoriation, contracture Neurological: no change, disorganized Internal Medicine Assmt/Plan - Assessment Assessment: ASSESSMENT AND PLAN: Leukocytosis, mild anemia, diabetes, history of stroke, chronic obstructive pulmonary disease, and gait instability. Continue the patient on ADA diet, insulin sliding scale. - Plan Plan: PLAN: Continue the patient on ADA diet, insulin sliding scale. We will monitor hemoglobin and hematocrit. Continue fall precaution. Continue on w/c We will provide the patient with bronchodilator treatments. Psychiatry to manage the patient for all psych issues. We will continue to monitor the patient closely. Nutritional Asmnt/Malnutr-PDOC - Dietary Evaluation Malnutrition Findings (Please click <Entered> for more info): Nutritional Asmnt/Malnutrition Start: 06/03/18 09: 32 Text: Status: Complete Freq: Protocol: Document 06/03/18 09:36 GHASSAN (Rec: 06/03/18 10:32 GHASSAN MOON- [email or web address]) Nutritional Asmnt/Malnutrition Patient General Information Nutritional Screening Moderate Risk Diagnosis Psychosis Pertinent Medical Hx/Surgical Hx Stroke with generalized weakness, COPD, gait instability, diabetes Subjective Information Patient was admitted from nursing facility. Tolerating current diet order without difficulty. Current Diet Order/ Nutrition Support 60 gm CCHO, low sodium Patient / S.O Not Indicated Pertinent Medications Lipitor, Cozaar, MOM, Metformin Pertinent Labs WNL Nutritional Hx/Data Height 1.7 m Height (Calculated Centimeters) 170.2 Current Weight (lbs) 68.039 kg Weight (Calculated Kilograms) 68.0 Weight (Calculated Grams) 54224.9 [place] Body Weight 148 % [place] Body Weight 101 Body Mass Index (BMI) 23.5 Recent Weight Change No Weight Status Approriate GI Symptoms GI Symptoms None Last BM 2 x 1 Difficult in: None Food Allergies No Cultural/Ethnic/[employer] Belief None indicated Skin Integrity/Comment: Dario 16, Intact Current %PO Good (75-100%) Estimated Nutritional Goals BEE in Kcals: Using Current wt Calories/Kcals/Kg 25-30 kcal/kg using 68.1kg Kcals Calculated 1743-9886 kcal/day Protein: Using Current wt Protein g/kgm/kg Protein Calculated ~70gm/day Fluid: ml 0309-0990 ml/day Nutritional Problem 1. Problem Problem No nutrition diagnosis at this time Intervention/Recommendation Comments 1. Continue 60 gm CCHO, low sodium diet as tolerated by patient. Expected Outcomes/Goals Expected Outcomes/Goals Oral intake >75% of meals, weight stable, skin intact F/U LR 06/10
[2018-06-06] MEDS: INSULIN LISPRO 100 UNIT/ML VIAL SUBQ SCH (06:47)
[2018-06-06] MEDS: Multivitamin w/ Minerals Tab PO SCH (08:19)
[2018-06-06] MEDS: Aspirin 81mg Chewable Tab PO SCH (08:19)
--- NOTE | 2018-06-06 12:15 | Internal Medicine Prog Note ---
Internal Medicine Subjective - Subjective Patient seen and examined:: with staff, chart reviewed Patient is:: awake, verbal, interactive, in wheelchair, agitated Per staff patient has:: no adverse event, no episodes of fall, poor oral intake , tolerating meds Internal Medicine Objective - Results Result Diagrams: 05/31/18 18:22 05/31/18 18:22 Recent Labs: Laboratory Last Values WBC 11.8 Th/cmm (4.8-10.8) H 05/31/18 18:22 RBC 4.52 Mil/cmm (3.80-5.80) 05/31/18 18:22 Hgb 13.5 gm/dL (12-16) 05/31/18 18:22 Hct 40.0 % (41.0-60) L 05/31/18 18:22 MCV 88.6 fl (80-99) 05/31/18 18:22 MCH 30.0 pg (27.0-31.0) 05/31/18 18: MCHC Differential 33.8 pg (28.0-36.0) 05/31/18 18:22 RDW 12.7 % (11.5-20.0) 05/31/18 18:22 Plt Count 287 Th/cmm (150-400) 05/31/18 18:22 MPV 7.8 fl 05/31/18 18:22 Neutrophils % 68.9 % (40.0-80.0) 05/31/18 18:22 Lymphocytes % 22.6 % (20.0-50.0) 05/31/18 18:22 Monocytes % 5.6 % (2.0-10.0) 05/31/18 18:22 Eosinophils % 2.7 % (0.0-5.0) 05/31/18 18:22 Basophils % 0.2 % (0.0-2.0) 05/31/18 18:22 Sodium 136 mEq/L (136-145) 05/31/18 18:22 Potassium 4.0 mEq/L (3.5-5.1) 05/31/18 18:22 Chloride 102 mEq/L (98-107) 05/31/18 18:22 Carbon Dioxide 22.0 mEq/L (21.0-31.0) 05/31/18 18:22 Anion Gap 16.0 (7.0-16.0) 05/31/18 18:22 BUN 24 mg/dL (7-25) 05/31/18 18:22 Creatinine 1.1 mg/dL (0.7-1.3) 05/31/18 18:22 Est GFR ( Amer) TNP 05/31/18 18:22 Est GFR (Non-Af Amer) TNP 05/31/18 18:22 BUN/Creatinine Ratio 21.8 05/31/18 18:22 Glucose 125 mg/dL (70-105) H 05/31/18 18:22 Calcium 9.4 mg/dL (8.6-10.3) 05/31/18 18:22 Total Bilirubin 0.7 mg/dL (0.3-1.0) 05/31/18 18:22 AST 25 U/L (13-39) 05/31/18 18:22 ALT 24 U/L (7-52) 05/31/18 18:22 Alkaline Phosphatase 95 U/L (34-104) 05/31/18 18:22 Troponin I < 0.01 ng/mL (0.01-0.05) L 05/31/18 18:22 Total Protein 7.2 gm/dL (6.0-8.3) 05/31/18 18:22 Albumin 4.1 gm/dL (4.2-5.5) L 05/31/18 18:22 Globulin 3.1 gm/dL 05/31/18 18:22 Albumin/Globulin Ratio 1.3 (1.0-1.8) 05/31/18 18:22 Triglycerides 151 mg/dL (<150) H 05/31/18 20:00 Cholesterol 100 mg/dL (<200) 05/31/18 20:00 LDL Cholesterol Direct 55 mg/dL (75-193) L 05/31/18 20:00 HDL Cholesterol 34 mg/dL (23-92) 05/31/18 20:00 TSH 4.37 uIU/ml (0.34-5.60) 05/31/18 18:22 Salicylates < 25.0 mg/L (30.0-100.0) L 05/31/18 18:22 Acetaminophen < 10.0 ug/mL (10.0-30.0) L 05/31/18 18:22 Ethyl Alcohol < 10 mg/dL (0-10) 05/31/18 18:22 RPR NONREACTIVE (NONREACTIVE) 05/31/18 18:22 - Physical Exam Vitals and I&O: Vital Signs Temp 97.9 F 06/06/18 06:04 Pulse 76 06/06/18 10:11 Resp 16 06/06/18 10:11 BP 128/51 06/06/18 08:20 Pulse Ox 97 06/06/18 10:11 Intake & Output 06/05/18 06/06/18 06/06/18 18:59 06:59 18:59 Intake Total 1200 120 Balance 1200 120 Intake: Oral 1200 120 Other: # Voids 4 3 # Bowel Movements 3 0 Active Medications: Current Medications Acetaminophen (Tylenol) 650 mg PO Q4HR PRN PRN Reason: Mild Pain / Temp above 100 Stop: 07/30/18 20:26 Albuterol Sulfate (Albuterol 2.5mg/3ml Neb Ud) 2.5 mg HHN Q4HRT PRN PRN Reason: Shortness of Breath Stop: 07/30/18 20:32 Amlodipine Besylate (Norvasc) 5 mg PO DAILY [facility] Stop: 07/31/18 08:59 Last Admin: 06/06/18 08:20 Dose: 5 mg Aspirin (Aspirin Chewable) 81 mg PO DAILY [facility] Stop: 07/31/18 08:59 Last Admin: 06/06/18 08:19 Dose: 81 mg Atorvastatin Calcium (Lipitor) 80 mg PO HS [facility]; Protocol Stop: 07/30/18 20:59 Last Admin: 06/05/18 20:21 Dose: 80 mg Buspirone HCl (Buspar) 10 mg PO BID [facility] Stop: 07/31/18 08:59 Last Admin: 06/06/18 08:19 Dose: 10 mg Clopidogrel Bisulfate (Plavix) 75 mg PO DAILY [facility] Stop: 07/31/18 08:59 Last Admin: 06/06/18 08:19 Dose: 75 mg Ipratropium [place] (Atrovent Neb 0.5mg/2.5ml) 0.5 mg HHN Q4HRT PRN PRN Reason: Shortness of Breath Stop: 07/30/18 20:32 Lorazepam (Ativan) 0.5 mg PO Q4HR PRN; Protocol PRN Reason: Anxiety Stop: 06/30/18 20:26 Last Admin: 06/06/18 10:16 Dose: 0.5 mg Losartan Potassium (Cozaar) 25 mg PO DAILY [facility] Stop: 07/31/18 08:59 Last Admin: 06/06/18 08:20 Dose: 25 mg Magnesium Hydroxide (Milk Of Magnesia) 30 ml PO HS PRN PRN Reason: Constipation Metformin HCl (Glucophage) 850 mg PO BIDWM [facility] Stop: 07/31/18 07:59 Last Admin: 06/06/18 08:19 Dose: 850 mg Sertraline HCl (Zoloft) 100 mg PO DAILY [facility] Stop: 07/31/18 08:59 Last Admin: 06/06/18 08:20 Dose: 100 mg Zolpidem Tartrate (Ambien) 5 mg PO HS PRN PRN Reason: Insomnia Stop: 07/30/18 20:26 Last Admin: 06/05/18 20:22 Dose: 5 mg General: weak, demented HEENT: NC/AT, PERRLA, EOMI Neck: Supple, No JVD Lungs: CTAB Cardiovascular: RRR, Normal S1, Normal S2, with murmur Abdomen: soft, non-tender, globular, positive bowel sound Extremities: excoriation, contracture Neurological: no change, disorganized Internal Medicine Assmt/Plan - Assessment Assessment: ASSESSMENT AND PLAN: Leukocytosis, mild anemia, diabetes, history of stroke, chronic obstructive pulmonary disease, and gait instability. Continue the patient on ADA diet, insulin sliding scale. - Plan Plan: PLAN: Continue the patient on ADA diet, insulin sliding scale. We will monitor hemoglobin and hematocrit. Continue fall precaution. Continue on w/c We will provide the patient with bronchodilator treatments. Psychiatry to manage the patient for all psych issues. We will continue to monitor the patient closely. Nutritional Asmnt/Malnutr-PDOC - Dietary Evaluation Malnutrition Findings (Please click <Entered> for more info): Nutritional Asmnt/Malnutrition Start: 06/03/18 09: 32 Text: Status: Complete Freq: Protocol: Document 06/03/18 09:36 [email or web address] (Rec: 06/03/18 10:32 GHASSAN MOON- FNS1) Nutritional Asmnt/Malnutrition Patient General Information Nutritional Screening Moderate Risk Diagnosis Psychosis Pertinent Medical Hx/Surgical Hx Stroke with generalized weakness, COPD, gait instability, diabetes Subjective Information Patient was admitted from nursing facility. Tolerating current diet order without difficulty. Current Diet Order/ Nutrition Support 60 gm CCHO, low sodium Patient / S.O Not Indicated Pertinent Medications Lipitor, Cozaar, MOM, Metformin Pertinent Labs WNL Nutritional Hx/Data Height 1.7 m Height (Calculated Centimeters) 170.2 Current Weight (lbs) 68.039 kg Weight (Calculated Kilograms) 68.0 Weight (Calculated Grams) 13340.9 [place] Body Weight 148 % [place] Body Weight 101 Body Mass Index (BMI) 23.5 Recent Weight Change No Weight Status Approriate GI Symptoms GI Symptoms None Last BM 2/ x 1 Difficult in: None Food Allergies No Cultural/Ethnic/P[employer]al Belief None indicated Skin Integrity/Comment: Dario 16, Intact Current %PO Good (75-100%) Estimated Nutritional Goals BEE in Kcals: Using Current wt Calories/Kcals/Kg 25-30 kcal/kg using 68.1kg Kcals Calculated 5903-4668 kcal/day Protein: Using Current wt Protein g/kgm/kg Protein Calculated ~70gm/day Fluid: ml 8716-9771 ml/day Nutritional Problem 1. Problem Problem No nutrition diagnosis at this time Intervention/Recommendation Comments 1. Continue 60 gm CCHO, low sodium diet as tolerated by patient. Expected Outcomes/Goals Expected Outcomes/Goals Oral intake >75% of meals, weight stable, skin intact F/U LR 06/10
--- NOTE | 2018-06-06 15:57 | Progress Notes ---
DATE: 06/05/2018 SUBJECTIVE: The patient in the hospital. The patient apparently made statements that he wanted to be . Over the weekend noted to be confused, depressed, withdrawn. He seems to be in somewhat better spirits, somewhat calmer, no behavioral issues. Slept about 7 hours. No agitation, no restlessness. Staff noting he remains withdrawn, depressed, isolative, sometimes agitated, suspicious. Medications were noted. The patient is not a very good historian, minimizing the reasons he is here. ASSESSMENT: The patient remains depressed, withdrawn, ongoing concerns about impulsivity. PLAN: We will continue to monitor. The patient remains symptomatic. Ongoing safety concerns, concerns about impulsivity, not safe for a lower level of care, but some improvement noted. [facility]# [id number]
[2018-06-07] MEDS: INSULIN LISPRO 100 UNIT/ML VIAL SUBQ SCH (06:40)
[2018-06-07] MEDS: Multivitamin w/ Minerals Tab PO SCH (08:57)
[2018-06-07] MEDS: Aspirin 81mg Chewable Tab PO SCH (08:58)
--- NOTE | 2018-06-07 12:31 | Progress Notes ---
DATE: 06/06/2018 SUBJECTIVE: The patient mostly withdrawn, still angry, upset, poor historian. Staff noting he remains mostly to himself. Oriented to name, place, not year or month; able to make his own needs med, taking his medications, mostly focused on discharge, states he cannot live with his because of his memory problems and his history of stroke. Noted to be isolative, easily agitated, suspicious, labile. ASSESSMENT: The patient remains symptomatic, withdrawn, still depressed, isolative, needs monitoring. He is somewhat more cooperative, but remains confused, requiring redirection. Medications were noted. PLAN: Continue to monitor. The patient is showing signs of improvement. JOB# [id number]
--- NOTE | 2018-06-07 12:57 | Internal Medicine Prog Note ---
Internal Medicine Subjective - Subjective Patient seen and examined:: with staff, chart reviewed Patient is:: awake, verbal, interactive, in wheelchair, agitated Per staff patient has:: no adverse event, no episodes of fall, poor oral intake , tolerating meds Internal Medicine Objective - Results Result Diagrams: 05/31/18 18:22 05/31/18 18:22 Recent Labs: Laboratory Last Values WBC 11.8 Th/cmm (4.8-10.8) H 05/31/18 18:22 RBC 4.52 Mil/cmm (3.80-5.80) 05/31/18 18:22 Hgb 13.5 gm/dL (12-16) 05/31/18 18:22 Hct 40.0 % (41.0-60) L 05/31/18 18:22 MCV 88.6 fl (80-99) 05/31/18 18:22 MCH 30.0 pg (27.0-31.0) 05/31/18 18: MCHC Differential 33.8 pg (28.0-36.0) 05/31/18 18:22 RDW 12.7 % (11.5-20.0) 05/31/18 18:22 Plt Count 287 Th/cmm (150-400) 05/31/18 18:22 MPV 7.8 fl 05/31/18 18:22 Neutrophils % 68.9 % (40.0-80.0) 05/31/18 18:22 Lymphocytes % 22.6 % (20.0-50.0) 05/31/18 18:22 Monocytes % 5.6 % (2.0-10.0) 05/31/18 18:22 Eosinophils % 2.7 % (0.0-5.0) 05/31/18 18:22 Basophils % 0.2 % (0.0-2.0) 05/31/18 18:22 Sodium 136 mEq/L (136-145) 05/31/18 18:22 Potassium 4.0 mEq/L (3.5-5.1) 05/31/18 18:22 Chloride 102 mEq/L (98-107) 05/31/18 18:22 Carbon Dioxide 22.0 mEq/L (21.0-31.0) 05/31/18 18:22 Anion Gap 16.0 (7.0-16.0) 05/31/18 18:22 BUN 24 mg/dL (7-25) 05/31/18 18:22 Creatinine 1.1 mg/dL (0.7-1.3) 05/31/18 18:22 Est GFR ( Amer) TNP 05/31/18 18:22 Est GFR (Non-Af Amer) TNP 05/31/18 18:22 BUN/Creatinine Ratio 21.8 05/31/18 18:22 Glucose 125 mg/dL (70-105) H 05/31/18 18:22 POC Glucose 97 MG/DL (70 - 105) 06/07/18 11:34 Calcium 9.4 mg/dL (8.6-10.3) 05/31/18 18:22 Total Bilirubin 0.7 mg/dL (0.3-1.0) 05/31/18 18:22 AST 25 U/L (13-39) 05/31/18 18:22 ALT 24 U/L (7-52) 05/31/18 18:22 Alkaline Phosphatase 95 U/L (34-104) 05/31/18 18:22 Troponin I < 0.01 ng/mL (0.01-0.05) L 05/31/18 18:22 Total Protein 7.2 gm/dL (6.0-8.3) 05/31/18 18:22 Albumin 4.1 gm/dL (4.2-5.5) L 05/31/18 18:22 Globulin 3.1 gm/dL 05/31/18 18:22 Albumin/Globulin Ratio 1.3 (1.0-1.8) 05/31/18 18:22 Triglycerides 151 mg/dL (<150) H 05/31/18 20:00 Cholesterol 100 mg/dL (<200) 05/31/18 20:00 LDL Cholesterol Direct 55 mg/dL (75-193) L 05/31/18 20:00 HDL Cholesterol 34 mg/dL (23-92) 05/31/18 20:00 TSH 4.37 uIU/ml (0.34-5.60) 05/31/18 18:22 Salicylates < 25.0 mg/L (30.0-100.0) L 05/31/18 18:22 Acetaminophen < 10.0 ug/mL (10.0-30.0) L 05/31/18 18:22 Ethyl Alcohol < 10 mg/dL (0-10) 05/31/18 18:22 RPR NONREACTIVE (NONREACTIVE) 05/31/18 18:22 - Physical Exam Vitals and I&O: Vital Signs Temp 98 F 06/07/18 06:30 Pulse 74 06/07/18 08:58 Resp 18 06/07/18 06:30 BP 139/60 06/07/18 08:58 Pulse Ox 98 06/07/18 06:30 Intake & Output 06/06/18 06/07/18 06/07/18 18:59 06:59 18:59 Intake Total 1600 240 Balance 1600 240 Intake: Oral 1600 240 Other: # Voids 4 1 # Bowel Movements 2 0 Active Medications: Current Medications Acetaminophen (Tylenol) 650 mg PO Q4HR PRN PRN Reason: Mild Pain / Temp above 100 Stop: 07/30/18 20:26 Albuterol Sulfate (Albuterol 2.5mg/3ml Neb Ud) 2.5 mg HHN Q4HRT PRN PRN Reason: Shortness of Breath Stop: 07/30/18 20:32 Amlodipine Besylate (Norvasc) 5 mg PO DAILY [facility] Stop: 07/31/18 08:59 Last Admin: 06/07/18 08:58 Dose: 5 mg Aspirin (Aspirin Chewable) 81 mg PO DAILY [facility] Stop: 07/31/18 08:59 Last Admin: 06/07/18 08:58 Dose: 81 mg Atorvastatin Calcium (Lipitor) 80 mg PO [facility]; Protocol Stop: 07/30/18 20:59 Last Admin: 06/06/18 20:21 Dose: 80 mg Buspirone HCl (Buspar) 10 mg PO BID [facility] Stop: 07/31/18 08:59 Last Admin: 06/07/18 08:57 Dose: 10 mg Clopidogrel Bisulfate (Plavix) 75 mg PO DAILY [facility] Stop: 07/31/18 08:59 Last Admin: 06/07/18 08:56 Dose: 75 mg Ipratropium [place] (Atrovent Neb 0.5mg/2.5ml) 0.5 mg HHN Q4HRT PRN PRN Reason: Shortness of Breath Stop: 07/30/18 20:32 Lorazepam (Ativan) 0.5 mg PO Q4HR PRN; Protocol PRN Reason: Anxiety Stop: 06/30/18 20:26 Last Admin: 06/06/18 10:16 Dose: 0.5 mg Losartan Potassium (Cozaar) 25 mg PO DAILY [facility] Stop: 07/31/18 08:59 Last Admin: 06/07/18 08:57 Dose: 25 mg Magnesium Hydroxide (Milk Of Magnesia) 30 ml PO HS PRN PRN Reason: Constipation Metformin HCl (Glucophage) 850 mg PO BIDWM [facility] Stop: 07/31/18 07:59 Last Admin: 06/07/18 08:57 Dose: 850 mg Sertraline HCl (Zoloft) 100 mg PO DAILY [facility] Stop: 07/31/18 08:59 Last Admin: 06/07/18 08:58 Dose: 100 mg Zolpidem Tartrate (Ambien) 5 mg PO HS PRN PRN Reason: Insomnia Stop: 07/30/18 20:26 Last Admin: 06/05/18 20:22 Dose: 5 mg General: weak, demented HEENT: NC/AT, PERRLA, EOMI Neck: Supple, No JVD Lungs: CTAB Cardiovascular: RRR, Normal S1, Normal S2, with murmur Abdomen: soft, non-tender, globular, positive bowel sound Extremities: excoriation, contracture Neurological: no change, disorganized Internal Medicine Assmt/Plan - Assessment Assessment: ASSESSMENT AND PLAN: Leukocytosis, mild anemia, diabetes, history of stroke, chronic obstructive pulmonary disease, and gait instability. Continue the patient on ADA diet, insulin sliding scale. - Plan Plan: PLAN: Continue the patient on ADA diet, insulin sliding scale. We will monitor hemoglobin and hematocrit. Continue fall precaution. Continue on w/c We will provide the patient with bronchodilator treatments. Psychiatry to manage the patient for all psych issues. We will continue to monitor the patient closely. Nutritional Asmnt/Malnutr-PDOC - Dietary Evaluation Malnutrition Findings (Please click <Entered> for more info): Nutritional Asmnt/Malnutrition Start: 06/03/18 09: 32 Text: Status: Complete Freq: Protocol: Document 06/03/18 09:36 GHASSAN (Rec: 06/03/18 10:32 GHASSAN MOON- [email or web address]) Nutritional Asmnt/Malnutrition Patient General Information Nutritional Screening Moderate Risk Diagnosis Psychosis Pertinent Medical Hx/Surgical Hx Stroke with generalized weakness, COPD, gait instability, diabetes Subjective Information Patient was admitted from nursing facility. Tolerating current diet order without difficulty. Current Diet Order/ Nutrition Support 60 gm CCHO, low sodium Patient / S.O Not Indicated Pertinent Medications Lipitor, Cozaar, MOM, Metformin Pertinent Labs WNL Nutritional Hx/Data Height 1.7 m Height (Calculated Centimeters) 170.2 Current Weight (lbs) 68.039 kg Weight (Calculated Kilograms) 68.0 Weight (Calculated Grams) 90976.9 [place] Body Weight 148 % [place] Body Weight 101 Body Mass Index (BMI) 23.5 Recent Weight Change No Weight Status Approriate GI Symptoms GI Symptoms None Last BM 2 x 1 Difficult in: None Food Allergies No Cultural/Ethnic/Islam Belief None indicated Skin Integrity/Comment: Dario 16, Intact Current %PO Good (75-100%) Estimated Nutritional Goals BEE in Kcals: Using Current wt Calories/Kcals/Kg 25-30 kcal/kg using 68.1kg Kcals Calculated 3521-7309 kcal/day Protein: Using Current wt Protein g/kgm/kg Protein Calculated ~70gm/day Fluid: ml 4161-5003 ml/day Nutritional Problem 1. Problem Problem No nutrition diagnosis at this time Intervention/Recommendation Comments 1. Continue 60 gm CCHO, low sodium diet as tolerated by patient. Expected Outcomes/Goals Expected Outcomes/Goals Oral intake >75% of meals, weight stable, skin intact F/U LR 06/10
--- NOTE | 2018-06-07 23:00 | Progress Notes ---
DATE: 06/07/2018 SUBJECTIVE: The patient is currently in the hospital, seems to be doing better, calmer, still some bouts of confusion, sleeping well, eating well, likely approaching his baseline. Less isolative, more engaged, making good friends with roommate, brighter affect, sleeping well, eating well. ASSESSMENT: The patient will likely approaching his baseline, more engaged. No overt SI or HI. PLAN: We will monitor for further 24 hours. The patient likely approaching baseline. [facility]# [id number]
[2018-06-08] MEDS: INSULIN LISPRO 100 UNIT/ML VIAL SUBQ SCH (06:56)
[2018-06-08] MEDS: Aspirin 81mg Chewable Tab PO SCH (08:56)
[2018-06-08] MEDS: Multivitamin w/ Minerals Tab PO SCH (08:56)
--- NOTE | 2018-06-08 12:55 | Internal Medicine Prog Note ---
Internal Medicine Subjective - Subjective Patient seen and examined:: with staff, chart reviewed Patient is:: awake, verbal, interactive, in wheelchair, agitated Per staff patient has:: no adverse event, no episodes of fall, poor oral intake , tolerating meds Internal Medicine Objective - Results Result Diagrams: 05/31/18 18:22 05/31/18 18:22 Recent Labs: Laboratory Last Values WBC 11.8 Th/cmm (4.8-10.8) H 05/31/18 18:22 RBC 4.52 Mil/cmm (3.80-5.80) 05/31/18 18:22 Hgb 13.5 gm/dL (12-16) 05/31/18 18:22 Hct 40.0 % (41.0-60) L 05/31/18 18:22 MCV 88.6 fl (80-99) 05/31/18 18:22 MCH 30.0 pg (27.0-31.0) 05/31/18 18: MCHC Differential 33.8 pg (28.0-36.0) 05/31/18 18:22 RDW 12.7 % (11.5-20.0) 05/31/18 18:22 Plt Count 287 Th/cmm (150-400) 05/31/18 18:22 MPV 7.8 fl 05/31/18 18:22 Neutrophils % 68.9 % (40.0-80.0) 05/31/18 18:22 Lymphocytes % 22.6 % (20.0-50.0) 05/31/18 18:22 Monocytes % 5.6 % (2.0-10.0) 05/31/18 18:22 Eosinophils % 2.7 % (0.0-5.0) 05/31/18 18:22 Basophils % 0.2 % (0.0-2.0) 05/31/18 18:22 Sodium 136 mEq/L (136-145) 05/31/18 18:22 Potassium 4.0 mEq/L (3.5-5.1) 05/31/18 18:22 Chloride 102 mEq/L (98-107) 05/31/18 18:22 Carbon Dioxide 22.0 mEq/L (21.0-31.0) 05/31/18 18:22 Anion Gap 16.0 (7.0-16.0) 05/31/18 18:22 BUN 24 mg/dL (7-25) 05/31/18 18:22 Creatinine 1.1 mg/dL (0.7-1.3) 05/31/18 18:22 Est GFR ( Amer) TNP 05/31/18 18:22 Est GFR (Non-Af Amer) TNP 05/31/18 18:22 BUN/Creatinine Ratio 21.8 05/31/18 18:22 Glucose 125 mg/dL (70-105) H 05/31/18 18:22 POC Glucose 102 MG/DL (70 - 105) 06/08/18 06:48 Calcium 9.4 mg/dL (8.6-10.3) 05/31/18 18:22 Total Bilirubin 0.7 mg/dL (0.3-1.0) 05/31/18 18:22 AST 25 U/L (13-39) 05/31/18 18:22 ALT 24 U/L (7-52) 05/31/18 18:22 Alkaline Phosphatase 95 U/L (34-104) 05/31/18 18:22 Troponin I < 0.01 ng/mL (0.01-0.05) L 05/31/18 18:22 Total Protein 7.2 gm/dL (6.0-8.3) 05/31/18 18:22 Albumin 4.1 gm/dL (4.2-5.5) L 05/31/18 18:22 Globulin 3.1 gm/dL 05/31/18 18:22 Albumin/Globulin Ratio 1.3 (1.0-1.8) 05/31/18 18:22 Triglycerides 151 mg/dL (<150) H 05/31/18 20:00 Cholesterol 100 mg/dL (<200) 05/31/18 20:00 LDL Cholesterol Direct 55 mg/dL (75-193) L 05/31/18 20:00 HDL Cholesterol 34 mg/dL (23-92) 05/31/18 20:00 TSH 4.37 uIU/ml (0.34-5.60) 05/31/18 18:22 Salicylates < 25.0 mg/L (30.0-100.0) L 05/31/18 18:22 Acetaminophen < 10.0 ug/mL (10.0-30.0) L 05/31/18 18:22 Ethyl Alcohol < 10 mg/dL (0-10) 05/31/18 18:22 RPR NONREACTIVE (NONREACTIVE) 05/31/18 18:22 - Physical Exam Vitals and I&O: Vital Signs Temp 98.2 F 06/08/18 12:22 Pulse 74 06/08/18 12:22 Resp 20 06/08/18 12:22 BP 140/68 06/08/18 12:22 Pulse Ox 97 06/08/18 12:22 Intake & Output 06/07/18 06/08/18 06/08/18 18:59 06:59 18:59 Intake Total 120 Balance 120 Intake: Oral 120 Other: # Voids 3 Active Medications: Current Medications Acetaminophen (Tylenol) 650 mg PO Q4HR PRN PRN Reason: Mild Pain / Temp above 100 Stop: 07/30/18 20:26 Albuterol Sulfate (Albuterol 2.5mg/3ml Neb Ud) 2.5 mg HHN Q4HRT PRN PRN Reason: Shortness of Breath Stop: 07/30/18 20:32 Amlodipine Besylate (Norvasc) 5 mg PO DAILY [facility] Stop: 07/31/18 08:59 Last Admin: 06/08/18 08:57 Dose: 5 mg Aspirin (Aspirin Chewable) 81 mg PO DAILY [facility] Stop: 07/31/18 08:59 Last Admin: 06/08/18 08:56 Dose: 81 mg Atorvastatin Calcium (Lipitor) 80 mg PO HS [facility]; Protocol Stop: 07/30/18 20:59 Last Admin: 06/07/18 21:55 Dose: 80 mg Clopidogrel Bisulfate (Plavix) 75 mg PO DAILY [facility] Stop: 07/31/18 08:59 Last Admin: 06/08/18 08:56 Dose: 75 mg Ipratropium [place] (Atrovent Neb 0.5mg/2.5ml) 0.5 mg HHN Q4HRT PRN PRN Reason: Shortness of Breath Stop: 07/30/18 20:32 Lorazepam (Ativan) 0.5 mg PO Q4HR PRN; Protocol PRN Reason: Anxiety Stop: 06/30/18 20:26 Last Admin: 06/06/18 10:16 Dose: 0.5 mg Losartan Potassium (Cozaar) 25 mg PO DAILY [facility] Stop: 07/31/18 08:59 Last Admin: 06/08/18 08:56 Dose: 25 mg Magnesium Hydroxide (Milk Of Magnesia) 30 ml PO HS PRN PRN Reason: Constipation Metformin HCl (Glucophage) 850 mg PO BIDWM [facility] Stop: 07/31/18 07:59 Last Admin: 06/08/18 08:56 Dose: 850 mg Miscellaneous (Misc Oral Tab) 1 tab PO BID [facility] Stop: 07/31/18 08:59 Sertraline HCl (Zoloft) 100 mg PO DAILY [facility] Stop: 07/31/18 08:59 Last Admin: 06/08/18 08:55 Dose: 100 mg Zolpidem Tartrate (Ambien) 5 mg PO HS PRN PRN Reason: Insomnia Stop: 07/30/18 20:26 Last Admin: 06/05/18 20:22 Dose: 5 mg General: weak, demented HEENT: NC/AT, PERRLA, EOMI Neck: Supple, No JVD Lungs: CTAB Cardiovascular: RRR, Normal S1, Normal S2, with murmur Abdomen: soft, non-tender, globular, positive bowel sound Extremities: excoriation, contracture Neurological: no change, disorganized Internal Medicine Assmt/Plan - Assessment Assessment: ASSESSMENT AND PLAN: Leukocytosis, mild anemia, diabetes, history of stroke, chronic obstructive pulmonary disease, and gait instability. Continue the patient on ADA diet, insulin sliding scale. - Plan Plan: PLAN: Continue the patient on ADA diet, insulin sliding scale. We will monitor hemoglobin and hematocrit. Continue fall precaution. Continue on w/c We will provide the patient with bronchodilator treatments. Psychiatry to manage the patient for all psych issues. We will continue to monitor the patient closely. Nutritional Asmnt/Malnutr-PDOC - Dietary Evaluation Malnutrition Findings (Please click <Entered> for more info): Nutritional Asmnt/Malnutrition Start: 06/03/18 09: 32 Text: Status: Complete Freq: Protocol: Document 06/03/18 09:36 GHASSAN (Rec: 06/03/18 10:32 MMKENDRA MOON- [email or web address]) Nutritional Asmnt/Malnutrition Patient General Information Nutritional Screening Moderate Risk Diagnosis Psychosis Pertinent Medical Hx/Surgical Hx Stroke with generalized weakness, COPD, gait instability, diabetes Subjective Information Patient was admitted from nursing facility. Tolerating current diet order without difficulty. Current Diet Order/ Nutrition Support 60 gm CCHO, low sodium Patient / S.O Not Indicated Pertinent Medications Lipitor, Cozaar, MOM, Metformin Pertinent Labs WNL Nutritional Hx/Data Height 1.7 m Height (Calculated Centimeters) 170.2 Current Weight (lbs) 68.039 kg Weight (Calculated Kilograms) 68.0 Weight (Calculated Grams) 51781.9 [place] Body Weight 148 % [place] Body Weight 101 Body Mass Index (BMI) 23.5 Recent Weight Change No Weight Status Approriate GI Symptoms GI Symptoms None Last BM 2 x 1 Difficult in: None Food Allergies No Cultural/Ethnic/Amish Belief None indicated Skin Integrity/Comment: Dario 16, Intact Current %PO Good (75-100%) Estimated Nutritional Goals BEE in Kcals: Using Current wt Calories/Kcals/Kg 25-30 kcal/kg using 68.1kg Kcals Calculated 3989-1685 kcal/day Protein: Using Current wt Protein g/kgm/kg Protein Calculated ~70gm/day Fluid: ml 4432-8551 ml/day Nutritional Problem 1. Problem Problem No nutrition diagnosis at this time Intervention/Recommendation Comments 1. Continue 60 gm CCHO, low sodium diet as tolerated by patient. Expected Outcomes/Goals Expected Outcomes/Goals Oral intake >75% of meals, weight stable, skin intact F/U LR 06/10
[2018-06-08] MEDS ORDERED: BUSPAR 10 MG PO SCH (17:00)
--- NOTE | 2018-06-09 00:34 | Discharge Summary ---
DATE OF DISCHARGE: 06/08/2018 HISTORY OF PRESENT ILLNESS: An 82-year-old male, currently in the hospital, depression, worsening sadness, despair, very angry, upset, AO to name, place, not situation. Mood "pissed off." History of dementia per documentation. Multiple other medical problems. PAST PSYCHIATRIC HISTORY: Denies, but tells me, "I do not have much of a mind anymore apparently with dementia." SOCIAL HISTORY: Noted. MEDICATIONS: Noted. PROVISIONAL DIAGNOSES: Dementia per documentation; major depression, unspecified. Under medical, please see full H and P. HOSPITAL COURSE: After initial assessment, the patient started on treatment and medications, for example, Zoloft, metformin, Ativan p.r.n., BuSpar, atorvastatin. As the hospital course progressed, mood improved, affect improved. No SI, no HI, much calmer, more cooperative, sociable and engaged, sleeping well, eating well now. CONDITION UPON DISCHARGE: Improved ADLs, good eye contact. Mood "pretty good." Affect constricted. Thought processes were linear. No SI, no HI, no psychosis. Insight and judgment are improved. DISCHARGE DIAGNOSES: Dementia and major depression, unspecified. Under medical, please see full H and P. PROGNOSIS: The patient follows up with outpatient mental health services and remains compliant with treatment. Prognosis will improve, otherwise guarded. [facility]# [id number]
== END 2018-06-08 15:20 | DRG 884 ==
LOC: ER 18:05 → GERO 19:20
PROVIDERS: ADMIT Psychiatry & Neurology Psychiatry; ATTEND Psychiatry & Neurology Psychiatry
DX: F03.90 Unspecified dementia, unspecified severity, without behavioral disturbance, psychotic disturbance, mood disturbance, and anxiety (principal); I10 Essential (primary) hypertension; E11.9 Type 2 diabetes mellitus without complications; J44.9 Chronic obstructive pulmonary disease, unspecified; E78.5 Hyperlipidemia, unspecified; F31.9 Bipolar disorder, unspecified; F17.200 Nicotine dependence, unspecified, uncomplicated; D72.829 Elevated white blood cell count, unspecified; D64.9 Anemia, unspecified; Z83.3 Family history of diabetes mellitus; Z88.8 Allergy status to other drugs, medicaments and biological substances; Z82.49 Family history of ischemic heart disease and other diseases of the circulatory system; Z86.73 Personal history of transient ischemic attack (TIA), and cerebral infarction without residual deficits
CPT/HCPCS: 36415-UA; 80053-TC; 80061-TC; 80320-TC; 80329-TC; 82948-90; 83036-90; 84443-TC; 84484-TC; 85025-TC; 86592-TC; 93005; 94760; Z7610